=== PATIENT | female | born 1980 | race Caucasian/White ===

== ENCOUNTER 2017-06-23 12:54 | Outpatient (CLI) | END 2017-06-23 17:00 | disposition home or self-care (01) ==

== ENCOUNTER 2017-07-02 05:55 | Day surgery (SDC) | END 2017-07-02 13:00 | disposition home or self-care (01) ==

== ENCOUNTER 2017-07-21 10:09 | Outpatient (CLI) | END 2017-07-21 15:52 | disposition home or self-care (01) ==

== ENCOUNTER 2017-10-28 07:22 | Day surgery (SDC) | END 2017-10-28 11:57 | disposition home or self-care (01) ==